=== PATIENT | male | born 1970 | race Caucasian/White ===

== ENCOUNTER 2017-07-20 21:32 | Emergency (ER) | payer OTHER, SELFPAY ==
[2017-07-20 21:34] VITALS: BP 149/95; PULSE 107; RESP 16; TEMP 36.8; O2SAT 96; BMI 32.3
--- NOTE | 2017-07-20 23:16 | ED.VISSUMM ---
- ER Visit Summary Date of Service: 07/20/17 Chief Complaint: Esophageal obstruction secondary to piece of pork History of Present Illness: The patient is a 46 M because is unable to swallow his own secretions or any liquids. He was eating pork this evening. He began to have difficulty around 7 PM. He does complain of foreign body sensation/chest pain. He has absolutely no other complaints please read written note. Physical Examination: Patient appears no distress. Blood pressure elevated 149/95. HEENT exam is unremarkable. Heart is regular without murmur, gallop or rub. S1 and S2 are normal. Lungs are clear to auscultation with good movement of air bilaterally. Abdomen is soft nontender. Bowel sounds are present normal. Test Results: None were obtained Emergency Department Course and Treatment: Patient states staff gave him a glass of Coca-Cola to drink. When I examined the patient he believes the obstruction past. He was given a glass of water which she was able to drink without difficulty. He complains of irritation. Treatment Plan: He has Prevacid and Nexium at home. He was instructed to take 1 tablet a day for the next 2 weeks and he was referred to Dr. Akin Gonzalez. Disposition: Discharge with outpatient GI follow-up Impression: Esophageal obstruction secondary to food bolus, resolved This note was generated with [employer] dictation software. It may contain incorrect words, spelling, and punctuation that were not noted in review of the chart prior to signing ED Disposition - Plan for ED Patient: Disposition: Home or Assisted Living Chief Complaint: Foreign Body Instructions: ED Foreign Body Esophageal Rslv Referrals: Cristian Figueroa MD [Primary Care Provider] - Akin Gonzalez MD [STAFF PHYSICIAN] - 5-7 Days Additional Instructions: Take either 1 Nexium capsule a day or 1 Prevacid tablet a day.
--- NOTE | 2017-07-20 23:19 | ED.DCSUM_ITS ---
- ER Visit Summary Date of Service: 07/20/17 Chief Complaint: Esophageal obstruction secondary to piece of pork History of Present Illness: The patient is a 46 M because is unable to swallow his own secretions or any liquids. He was eating pork this evening. He began to have difficulty around 7 PM. He does complain of foreign body sensation/ chest pain. He has absolutely no other complaints please read written note. Physical Examination: Patient appears no distress. Blood pressure elevated 149/ 95. HEENT exam is unremarkable. Heart is regular without murmur, gallop or rub. S1 and S2 are normal. Lungs are clear to auscultation with good movement of air bilaterally. Abdomen is soft nontender. Bowel sounds are present normal. Test Results: None were obtained Emergency Department Course and Treatment: Patient states staff gave him a glass of Coca-Cola to drink. When I examined the patient he believes the obstruction past. He was given a glass of water which she was able to drink without difficulty. He complains of irritation. Treatment Plan: He has Prevacid and Nexium at home. He was instructed to take 1 tablet a day for the next 2 weeks and he was referred to Dr. Akin Gonzalez. Disposition: Discharge with outpatient GI follow-up Impression: Esophageal obstruction secondary to food bolus, resolved This note was generated with [employer] dictation software. It may contain incorrect words, spelling, and punctuation that were not noted in review of the chart prior to signing ED Disposition - Plan for ED Patient: Disposition: Home or Assisted Living Chief Complaint: Foreign Body Instructions: ED Foreign Body Esophageal Rslv Referrals: Cristian Figueroa MD [Primary Care Provider] - Akin Gonzalez MD [STAFF PHYSICIAN] - 5-7 Days Additional Instructions: Take either 1 Nexium capsule a day or 1 Prevacid tablet a day.
--- NOTE | 2017-07-20 23:39 | ED.RN ---
DISCHARGE INSTRUCTIONS GIVEN TO AND REVIEWED WITH PATIENT, PATIENT DENIES QUESTIONS OR CONCERNS AND VOICES UNDERSTANDING OF DISCHARGE INSTRUCTIONS. PT AMBULATES OUT OF ROOM WITHOUT DIFFICULTY.
== END 2017-07-20 23:39 | disposition home or self-care (01) ==
LOC: ED 23:30
PROVIDERS: Emergency Provider Emergency Medicine
DX: K22.2 Esophageal obstruction (principal); T18.128A Food in esophagus causing other injury, initial encounter; Z87.891 Personal history of nicotine dependence
CPT/HCPCS: 99282